=== PATIENT | female | born 1940 | race Two or more races ===

== ENCOUNTER 2021-04-11 16:58 | Inpatient (IN) | payer OTHER ==
[~2021-04-11] VITALS: Ht 165.1 cm; Wt 72.6 kg
[2021-04-11] MEDS ORDERED: ZESTRIL5 MG (17:36)
[2021-04-11] MEDS ORDERED: KAPVAY0.1 MG (17:38)
[2021-04-11] MEDS ORDERED: ATORVASTATIN 40 MG (17:38)
[2021-04-11] MEDS ORDERED: FAMOTIDINE 20 MG (17:39)
[2021-04-11] MEDS ORDERED: TRAZODONE HCL50 MG (17:39)
== END 2021-04-16 16:42 | disposition home health service (06) | DRG 689 ==
LOC: ER 16:58 → SURH 23:05 → ICU-2 23:05 → SURH 04-13 18:07
PROVIDERS: ADMIT Internal Medicine; ATTEND Internal Medicine
PROC: 4A033R1 Measurement of Arterial Saturation, Peripheral, Percutaneous Approach (ICD-10-PCS; 2021-04-11)
PROC: 4A12X4Z Monitoring of Cardiac Electrical Activity, External Approach (ICD-10-PCS; principal; 2021-04-13)
DX: N39.0 Urinary tract infection, site not specified (principal); L89.153 Pressure ulcer of sacral region, stage 3; Z16.12 Extended spectrum beta lactamase (ESBL) resistance; Z79.4 Long term (current) use of insulin; B96.1 Klebsiella pneumoniae [K. pneumoniae] as the cause of diseases classified elsewhere; L08.89 Other specified local infections of the skin and subcutaneous tissue; B96.29 Other Escherichia coli [E. coli] as the cause of diseases classified elsewhere; B95.62 Methicillin resistant Staphylococcus aureus infection as the cause of diseases classified elsewhere; I12.9 Hypertensive chronic kidney disease with stage 1 through stage 4 chronic kidney disease, or unspecified chronic kidney disease; N18.9 Chronic kidney disease, unspecified; Z74.01 Bed confinement status; Z20.822 Contact with and (suspected) exposure to COVID-19; E11.65 Type 2 diabetes mellitus with hyperglycemia

== ENCOUNTER 2022-07-30 10:35 | Inpatient (IN) | payer OTHER ==
[~2022-07-30] VITALS: Ht 152.4 cm; Wt 81.6 kg
[~2022-07-30 10:35] MED LIST: ATORVASTATIN 40 MG; FAMOTIDINE 20 MG; KAPVAY0.1 MG; TRAZODONE HCL50 MG; ZESTRIL5 MG
[2022-07-30] MEDS ORDERED: HUMALOG100 UNIT/2 SUBCUTANEO (11:04)
[2022-07-30] MEDS ORDERED: LANTUS SOL100 UNIT/1 SUBCUTANEO (11:04)
[2022-07-30] MEDS ORDERED: IRON325 MG PO (11:05)
--- NOTE | 2022-07-30 11:07 | NUR ---
SE RECIBE FEMINA ALERTA Y ORIENTADA X3 EN AMBULANCIA POR HIPERGLUCEMIA Y LOW BLOOD PRESSURE. PERSONAL DE AMBULANCIA INDICA QUE SE LE ADMINISTRO 10UNITS HUMALOG 0900. SE COLOCA EN CAMA 6 PENDIENTE A EVALUACION MEDICA.
--- NOTE | 2022-07-30 11:58 | NUR ---
PACIENTE EVALUADA POR DR BAIRES QUIEN [place] [facility], RN BURTON LE ORIENTA A PACIENTE SOBRE EL MISMO Y VERBALIZA ENTENDER, LE COLECTA MUESTRAS Y LE CANALIZA BAJO MEDIDAS ASEPTICAS. AREA DE VENOPUNCION PATENTE, DOROTHY DE EDEMA Y ERITEMA. PEDIENTE ESTUDIO DE MARCELINO X. SE MANTINE PACIENTE BAJO OBSERVACION POR CAMBIOS EN [place] MED[place].
--- NOTE | 2022-07-30 12:03 | NUR ---
PTE LLEGA CANALIZADA DE AMBULANCIA CON ANGIO #18 EN ATRBRASO SCOTTIE PATENTE .
== END 2022-08-13 17:20 | disposition home or self-care (01) | DRG 689 ==
LOC: ER 10:35 → ICU-2 20:54 → ICU 08-03 01:55 → SURG 08-04 22:55
PROVIDERS: ADMIT Internal Medicine; ATTEND Internal Medicine
PROC: 30233N1 Transfusion of Nonautologous Red Blood Cells into Peripheral Vein, Percutaneous Approach (ICD-10-PCS; 2022-07-31)
PROC: 02HV33Z Insertion of Infusion Device into Superior Vena Cava, Percutaneous Approach (ICD-10-PCS; 2022-07-31)
PROC: B24BZZZ Ultrasonography of Heart with Aorta (ICD-10-PCS; 2022-07-31)
PROC: 0DB58ZX Excision of Esophagus, Via Natural or Artificial Opening Endoscopic, Diagnostic (ICD-10-PCS; principal; 2022-08-03)
PROC: 0HB6XZZ Excision of Back Skin, External Approach (ICD-10-PCS; 2022-08-04)
PROC: 4A12X4Z Monitoring of Cardiac Electrical Activity, External Approach (ICD-10-PCS; 2022-08-05)
PROC: BF37ZZZ Magnetic Resonance Imaging (MRI) of Pancreas (ICD-10-PCS; 2022-08-09)
PROC: 0JB73ZZ Excision of Back Subcutaneous Tissue and Fascia, Percutaneous Approach (ICD-10-PCS; 2022-08-12)
DX: N39.0 Urinary tract infection, site not specified (principal); A41.9 Sepsis, unspecified organism; K80.00 Calculus of gallbladder with acute cholecystitis without obstruction; B37.81 Candidal esophagitis; D64.9 Anemia, unspecified; L89.159 Pressure ulcer of sacral region, unspecified stage; L89.109 Pressure ulcer of unspecified part of back, unspecified stage; I48.0 Paroxysmal atrial fibrillation; E86.0 Dehydration; D53.0 Protein deficiency anemia; J45.998 Other asthma; K20.80 Other esophagitis without bleeding; I10 Essential (primary) hypertension; E11.65 Type 2 diabetes mellitus with hyperglycemia; B96.5 Pseudomonas (aeruginosa) (mallei) (pseudomallei) as the cause of diseases classified elsewhere; B96.4 Proteus (mirabilis) (morganii) as the cause of diseases classified elsewhere; B95.2 Enterococcus as the cause of diseases classified elsewhere; B96.20 Unspecified Escherichia coli [E. coli] as the cause of diseases classified elsewhere; Z74.01 Bed confinement status; Z79.4 Long term (current) use of insulin

== ENCOUNTER 2022-11-07 15:20 | Inpatient (IN) | payer OTHER ==
[~2022-11-07] VITALS: Ht 162.6 cm; Wt 81.6 kg
[~2022-11-07 15:20] MED LIST changes: +HUMALOG100 UNIT/2 SUBCUTANEO; +IRON325 MG PO; +LANTUS SOL100 UNIT/1 SUBCUTANEO
--- NOTE | 2022-11-07 15:57 | NUR ---
SE RECIBE PTE ALERTA ORIENTADA X3 EN AMBULANCIA EN COMPANIA DE PARAMEDICOS Y FAMILIAR.FAMILIAR REFIERE PTE TUVO DEXTRO BAJO HOY EN LA TARDE,FAMILIAR REFIERE HABERLE ADMINISTRADO GEL DE GLUCOSA ANTES DE LLEGAR LA AMBULANCIA.SE MARIA S/V Y SE UBICA.
[2022-11-07] MEDS ORDERED: VITAMIN D310 MCG/1 M PO (16:01)
--- NOTE | 2022-11-07 16:58 | NUR ---
SE LE ORIENTA A PTE SOBRE TRATAMIENTO E INSTRUCCIONES A SEGUIR, YAMILA REFIERE ENTENDER. RN PALACIOS COLECTA MUESTRAS ESTELA ORDEN MEDICA. PENDIENTE EKG
== END 2022-11-27 20:09 | disposition home or self-care (01) | DRG 981 ==
LOC: ER 15:20 → MEDI 23:39
PROVIDERS: ADMIT Internal Medicine; ATTEND Internal Medicine
PROC: 0JD70ZZ Extraction of Back Subcutaneous Tissue and Fascia, Open Approach (ICD-10-PCS; principal; 2022-11-09)
PROC: BW24ZZZ Computerized Tomography (CT Scan) of Chest and Abdomen (ICD-10-PCS; 2022-11-09)
PROC: 02HV33Z Insertion of Infusion Device into Superior Vena Cava, Percutaneous Approach (ICD-10-PCS; 2022-11-11)
PROC: 0HD6XZZ Extraction of Back Skin, External Approach (ICD-10-PCS; 2022-11-18)
PROC: 30233N1 Transfusion of Nonautologous Red Blood Cells into Peripheral Vein, Percutaneous Approach (ICD-10-PCS; 2022-11-23)
DX: N39.0 Urinary tract infection, site not specified (principal); L89.154 Pressure ulcer of sacral region, stage 4; J90 Pleural effusion, not elsewhere classified; Z16.12 Extended spectrum beta lactamase (ESBL) resistance; B37.89 Other sites of candidiasis; B49 Unspecified mycosis; L08.89 Other specified local infections of the skin and subcutaneous tissue; B96.29 Other Escherichia coli [E. coli] as the cause of diseases classified elsewhere; E16.1 Other hypoglycemia; D64.9 Anemia, unspecified; E11.9 Type 2 diabetes mellitus without complications; Z79.4 Long term (current) use of insulin; Z74.01 Bed confinement status; Z20.822 Contact with and (suspected) exposure to COVID-19; B95.61 Methicillin susceptible Staphylococcus aureus infection as the cause of diseases classified elsewhere; B95.62 Methicillin resistant Staphylococcus aureus infection as the cause of diseases classified elsewhere
CPT/HCPCS: 71275